=== PATIENT | male | born 1995 | race Caucasian/White ===

== ENCOUNTER 2016-10-15 10:50 | Emergency (ER) | payer SELFPAY ==
[2016-10-15 10:54] VITALS: TEMP 97.7; O2SAT 100
[2016-10-15] MEDS ORDERED: Lidocaine 2% Inj (20ml) INFIL ONE (11:16)
[2016-10-15] MEDS ORDERED: Tmp-Smz 800 mg-160 mg DS Tab PO STA (11:17)
[2016-10-15] MEDS ORDERED: Lidocaine 2% Inj (20ml) ONE (11:18)
--- NOTE | 2016-10-15 11:20 | C.PDOC ---
History Of Present Illness 21 yr old male presents to the ER for evaluation of left buttock painful mass for the past 3-4 days. Patient admits to similar symptoms in the past. Denies trauma, injury, fever, chills, abdominal pain, diarrhea, constipation, wound discharge, back pain, weakness or numbness. Time Seen by Provider: 10/15/16 11:12 Chief Complaint (Nursing): Abnormal Skin Integrity History Per: Patient History/Exam Limitations: no limitations Onset/Duration Of Symptoms: Days (3-4) Current Symptoms Are (Timing): Still Present Past Medical History Reviewed: Historical Data, Nursing Documentation, Vital Signs Vital Signs: Last Vital Signs Temp 97.7 F 10/15/16 10:53 Pulse 64 10/15/16 10:53 Resp 20 10/15/16 10:53 BP 115/65 10/15/16 10:53 Pulse Ox 100 10/15/16 11:24 - [facility] Procedures OTHER SKIN & SUBQ I D (07/04/14) Family History: States: No Known Family Hx - Social History Hx Tobacco Use: No Hx Alcohol Use: No Hx Substance Use: No - Immunization History Hx Tetanus Toxoid Vaccination: No Hx Influenza Vaccination: No Hx Pneumococcal Vaccination: No Review Of Systems Except As Marked, All Systems Reviewed And Found Negative. Constitutional: Negative for: Fever, Chills Gastrointestinal: Positive for: Other ((+) Painful mass on the left buttock. No drainage. ). Negative for: Abdominal Pain, Diarrhea, Constipation Musculoskeletal: Negative for: Back Pain Neurological: Negative for: Weakness, Numbness Physical Exam - Physical Exam Appears: Well, Non-toxic, No Acute Distress Skin: Warm, Dry, No Rash, Other (Right glutteus superior/lateral quandrant:4cm diameter tender mass, + fluctuance. No proximal streaking. ) Gastrointestinal/Abdominal: Soft, No Tenderness, No Guarding, No Rebound Back: No CVA Tenderness Extremity: Normal ROM, No Pedal Edema, No Swelling Neurological/Psych: Oriented x3, Normal Speech, Normal Motor, Normal Sensation, Normal Reflexes ED Course And Treatment O2 Sat by Pulse Oximetry: 100 Progress Note: On re-eavluation, pt is afebrile, hemodynamicaly stable. Non- toxic.Ambulatory in ED with stable gait. Abd: benign. back: (-) CVA tenderness. Skin: abscess over Right gluteus s/p I&D. Pt advised on wound care. ref. to F/u with ED in 2 days for wound check. ref. to F/u with surgery in 2-3 days as well. return to Ed if any worsening or new changes. - Incision & Drainage Of Abscess Anesthesia: Lidocaine 2% Prep Used: Betadine Procedure: Incised W/Scalpel Blade#: (11), Drained Pus (5ml), Irrigated Cavity W /Saline, Probed To Break Up Loculations, Packed W/Gauze Medical Decision Making Medical Decision Making: PLAN: * Bactrim PO Disposition Counseled Patient/Family Regarding: Diagnosis, Need For Followup, Rx Given - Disposition Referrals: [facility] [Outside] Jackie Matos MD [Staff Provider] - Disposition: HOME/ ROUTINE Disposition Time: 11:40 Condition: STABLE Additional Instructions: Take medication as prescribed Light duty return to ED in 2 days for wound check and packing removal/changes Follow up with Surgery in 2-3 days for re-evaluation as well. 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 - Scribe Statement The provider has reviewed the documentation as recorded by the Scribe Jennifer Tijerina All medical record entries made by the Scribe were at my direction and personally dictated by me. I have reviewed the chart and agree that the record accurately reflects my personal performance of the history, physical exam, medical decision making, and the department course for this patient. I have also personally directed, reviewed, and agree with the discharge instructions and disposition.
[2016-10-15] MEDS ORDERED: Tmp-Smz 800 mg-160 mg DS Tab ONE (11:29)
[2016-10-15 12:21] VITALS: BP 125/65; PULSE 69; RESP 18
== END 2016-10-15 12:20 | disposition home or self-care (01) ==
LOC: C.ER 10:50
DX: L02.31 Cutaneous abscess of buttock (principal)

== ENCOUNTER 2016-10-17 23:15 | Emergency (ER) | payer SELFPAY ==
[2016-10-17 23:27] VITALS: BP 111/70; PULSE 65; RESP 20; TEMP 97.7; O2SAT 100
--- NOTE | 2016-10-18 00:31 | C.PDOC ---
History Of Present Illness 21 year old male presents to the ED to check of a wound on the left buttock with no current pain. Patient was seen two days ago for an I&D of a buttock abscess, and is taking prescribed antibiotics. He denies any fever, or physical complaints at this time. Time Seen by Provider: 10/17/16 23:41 Chief Complaint (Nursing): Abnormal Skin Integrity History Per: Patient History/Exam Limitations: no limitations Quality Of Symptoms: denies: Painful, Itching, Swollen, Draining Recent travel outside of the [place]: No Additional History Per: Prior Records Past Medical History Reviewed: Historical Data, Nursing Documentation, Vital Signs Vital Signs: Last Vital Signs Temp 97.7 F 10/17/16 23:22 Pulse 65 10/17/16 23:22 Resp 20 10/18/16 00:44 BP 111/70 10/17/16 23:22 Pulse Ox 100 10/18/16 05:01 - [facility] Procedures OTHER SKIN & SUBQ I D (07/04/14) Family History: States: Unknown Family Hx - Social History Hx Tobacco Use: No Hx Alcohol Use: No Hx Substance Use: No - Immunization History Hx Tetanus Toxoid Vaccination: No Hx Influenza Vaccination: No Hx Pneumococcal Vaccination: No Review Of Systems Constitutional: Negative for: Fever, Chills Gastrointestinal: Negative for: Abdominal Pain Genitourinary: Positive for: Other (buttock wound) Physical Exam - Physical Exam Appears: Non-toxic, No Acute Distress Skin: Warm, Dry Head: Atraumatic Oral Mucosa: Moist Neck: Supple Respiratory: No Rales, No Rhonchi Gastrointestinal/Abdominal: Soft, No Tenderness Extremity: Normal ROM, No Tenderness Neurological/Psych: Oriented x3 Additional Physical Exam Comments: Packed abscess to left glutel area with a localized induration with no active draining and no fluctuance. ED Course And Treatment O2 Sat by Pulse Oximetry: 100 (room air ) Progress Note: Packing was removed from left buttock, wound was irrigated. There was no purulent discharge and wound was dressed. Patient was advised to continue with prescribed medications. Disposition Counseled Patient/Family Regarding: Diagnosis, Need For Followup - Disposition Disposition: HOME/ ROUTINE Disposition Time: 00:28 Condition: STABLE Additional Instructions: PLEASE FOLLOW UP WITH PMD CONTINUE MEDS PRESCRIBED RETURN TO ER IF WORSE Instructions: Abscess (ED) - Clinical Impression Clinical Impression: Wound check, abscess - Scribe Statement The provider has reviewed the documentation as recorded by the Scribe Ngozi Amador All medical record entries made by the Donisibe were at my direction and personally dictated by me. I have reviewed the chart and agree that the record accurately reflects my personal performance of the history, physical exam, medical decision making, and the department course for this patient. I have also personally directed, reviewed, and agree with the discharge instructions and disposition.
== END 2016-10-18 00:44 | disposition home or self-care (01) ==
LOC: C.ER 23:15
DX: Z48.00 Encounter for change or removal of nonsurgical wound dressing (principal)

== ENCOUNTER 2017-10-25 10:20 | Emergency (ER) | payer OTHER ==
[2017-10-25 10:40] VITALS: BP 116/71; PULSE 78; RESP 18; TEMP 97.4; O2SAT 99
[2017-10-25] MEDS ORDERED: Lidocaine 2% w Epi 1:100,000 Inj IJ STA (10:54)
--- NOTE | 2017-10-25 10:58 | C.PDOC ---
History Of Present Illness Patient is a 22 y/o male who presents to the ED with a complaint of worsening left buttock swelling and pain for the last 1 month. Patient reports possible abscess for the last 2-3 years; denies any prior I&D. Patient denies squeezing area but notes "it looks ready to drain". Denies fever. No other physical complaint. worsening L BUTTOCK SWELLING, PAIN X 1 MO, POSSIBLE ABSCESS X 2-3 YEARS. NO PRIOR I&D. PT DENIES SQUEEZING AREA "BUT IT LOOKS READY TO DRAIN". NO FEVER. EXAM NAD NONTOXIC SKIN +ABSCESS W CELLULITIS L UPPER BUTTOCK, NO PERIANAL INVOLVE REMAINDER NEG Time Seen by Provider: 10/25/17 10:50 Chief Complaint (Nursing): Abnormal Skin Integrity History Per: Patient History/Exam Limitations: no limitations Onset/Duration Of Symptoms: Days (1 monh) Current Symptoms Are (Timing): Still Present Location Of Injury: Left: Buttock (possible abscess) Quality Of Symptoms: Painful, Swollen Recent travel outside of the [place]: No Past Medical History Reviewed: Historical Data, Nursing Documentation, Vital Signs Vital Signs: Last Vital Signs Temp 97.4 F L 10/25/17 10:37 Pulse 78 10/25/17 10:37 Resp 18 10/25/17 10:37 BP 116/71 10/25/17 10:37 Pulse Ox 99 10/25/17 11:21 - Medical History PMH: No Chronic Diseases Surgical History: No Surg Hx - [facility] Procedures OTHER SKIN & SUBQ I D (07/04/14) Family History: States: No Known Family Hx - Social History Hx Tobacco Use: No Hx Alcohol Use: No Hx Substance Use: No - Immunization History Hx Tetanus Toxoid Vaccination: No Hx Influenza Vaccination: No Hx Pneumococcal Vaccination: No Review Of Systems Constitutional: Negative for: Fever Musculoskeletal: Positive for: Other (left buttock pain and swelling) Physical Exam - Physical Exam Appears: Non-toxic, No Acute Distress Skin: Normal Color, Warm, Dry, Other (cellulitis of left upper buttock, no perianal involvement ) Oral Mucosa: Moist Extremity: Normal ROM, No Deformity Neurological/Psych: Oriented x3, Normal Speech, Normal Cognition Gait: Steady ED Course And Treatment O2 Sat by Pulse Oximetry: 99 Progress Note: Tylenol, keflex, motrin administered. I&D procedure administered. - Incision & Drainage Of Abscess Anesthesia: Lidocaine 2%, With Epi Prep Used: Betadine Procedure: Incised W/Scalpel Blade#: (11), Drained Pus, Probed To Break Up Loculations, Packed W/Gauze Disposition Counseled Patient/Family Regarding: Diagnosis, Need For Followup, Rx Given - Disposition Referrals: [facility] [Provider Group] [facility] [Outside] [facility] [Outside] Disposition: HOME/ ROUTINE Disposition Time: 11:39 Condition: IMPROVED Additional Instructions: return 2 days for packing change, wound reevaluation. MOTRIN AND/OR TYLENOL DIRECTED FOR PAIN. COMPLETE ANTIBIOTICS PRESCRIBED. Prescriptions: Cephalexin [cephalexin] 500 mg PO BID #14 cap Instructions: Abscess Incision and Drainage (DC), Cellulitis (Skin Infection), Adult (DC) Forms: [employer] (Polish), Work Excuse - Clinical Impression Clinical Impression: Cellulitis, Abscess of buttock, left - Scribe Statement The provider has reviewed the documentation as recorded by the Scribnaz Cuellar All medical record entries made by the Donisibnaz were at my direction and personally dictated by me. I have reviewed the chart and agree that the record accurately reflects my personal performance of the history, physical exam, medical decision making, and the department course for this patient. I have also personally directed, reviewed, and agree with the discharge instructions and disposition.
== END 2017-10-25 11:50 | disposition home or self-care (01) ==
LOC: C.ER 10:20
DX: L03.317 Cellulitis of buttock (principal); L02.31 Cutaneous abscess of buttock

== ENCOUNTER 2017-10-27 07:52 | Emergency (ER) | payer SELFPAY ==
[2017-10-27 08:00] VITALS: BMI 21.9
[2017-10-27 08:02] VITALS: BP 120/74; PULSE 64; RESP 18; TEMP 98; O2SAT 100
--- NOTE | 2017-10-27 08:45 | C.PDOC ---
History Of Present Illness 22 year old male presents to the ED for left buttock packing change re-eval s/p I&D 10/25. Patient states symptoms are improved compared to prior and states he has been compliant with antibiotics. Patient denies new symptoms since prior ED evaluation. L BUTTOCK PACKING CHANGE REEVAL S/P I&D 10/25. P/S SX IMPROVED COMPARED TO PRIOR , COMPLIANT W ABX. NO NEW SX SINCE PRIOR ER EVAL. EXAM NAD SKIN PACKING IN PLACE; NO LOCAL ERYTHEMA, NONTEND NO FOCAL FLUCTUANCE PROC PACKING REMOVED WO DIFFICULTY. SCANT RESIDUAL PURULENT DC, IMPROVED COMPARED TO INITIAL. WOUND REPACKED, DRESSING APPLIED. PT TOLERATED WELL Time Seen by Provider: 10/27/17 08:13 Chief Complaint (Nursing): Wound Check History Per: Patient History/Exam Limitations: no limitations Onset/Duration Of Symptoms: Days Ago Current Symptoms Are (Timing): Better Additional History Per: Patient Past Medical History Reviewed: Historical Data, Nursing Documentation, Vital Signs Vital Signs: Last Vital Signs Temp 98.0 F 10/27/17 08:00 Pulse 64 10/27/17 08:00 Resp 18 10/27/17 08:55 BP 120/74 10/27/17 08:00 Pulse Ox 100 10/29/17 13:53 - Medical History PMH: No Chronic Diseases Surgical History: No Surg Hx - [facility] Procedures OTHER SKIN & SUBQ I D (07/04/14) Family History: States: Unknown Family Hx - Social History Hx Tobacco Use: No Hx Alcohol Use: No Hx Substance Use: No - Immunization History Hx Tetanus Toxoid Vaccination: No Hx Influenza Vaccination: No Hx Pneumococcal Vaccination: No Review Of Systems Skin: Positive for: Other (left buttock packing change and re-evaluation ) Physical Exam - Physical Exam Appears: Non-toxic, No Acute Distress Skin: Other (left buttock packing in place. no local erythema, nontender, no focal fluctuance ) Neck: Supple Extremity: Normal ROM Neurological/Psych: Oriented x3, Normal Speech, Normal Cognition ED Course And Treatment O2 Sat by Pulse Oximetry: 100 (on RA) Pulse Ox Interpretation: Normal Medical Decision Making Medical Decision Making: PROC PACKING REMOVED WO DIFFICULTY. SCANT RESIDUAL PURULENT DC, IMPROVED COMPARED TO INITIAL. WOUND REPACKED, DRESSING APPLIED. PT TOLERATED WELL Disposition Counseled Patient/Family Regarding: Diagnosis, Need For Followup - Disposition Referrals: [facility] [Provider Group] Disposition: HOME/ ROUTINE Disposition Time: 08:46 Condition: IMPROVED Additional Instructions: RETURN 2 DAYS FOR WOUND REEVALUATION, POSSIBLE PACKING CHANGE. Instructions: Wound Incision and Drainage (DC) Forms: [employer] (Mosotho) - Clinical Impression Clinical Impression: Wound check, abscess - Scribe Statement The provider has reviewed the documentation as recorded by the Scribe (Gayathri Henry) Provider Attestation: All medical record entries made by the Scribe were at my direction and personally dictated by me. I have reviewed the chart and agree that the record accurately reflects my personal performance of the history, physical exam, medical decision making, and the department course for this patient. I have also personally directed, reviewed, and agree with the discharge instructions and disposition.
== END 2017-10-27 08:55 | disposition home or self-care (01) ==
LOC: C.ER 07:52
DX: Z48.89 Encounter for other specified surgical aftercare (principal)

== ENCOUNTER 2017-10-29 09:50 | Emergency (ER) | payer SELFPAY ==
[2017-10-29 09:50] VITALS: BMI 21.9
[2017-10-29 09:55] VITALS: BP 118/75; PULSE 73; RESP 18; TEMP 98.7; O2SAT 99
--- NOTE | 2017-10-29 10:22 | C.PDOC ---
History Of Present Illness 22 year old male presents to the ED for wound check of left buttock. He is s/p I&D on 10/25/17, was seen here again on 10/27/17 and had packing removed and new packing placed. Patient states he feels the area is improving, is less painful. Patient denies fever or drainage. Time Seen by Provider: 10/29/17 09:55 Chief Complaint (Nursing): Wound Check History Per: Patient History/Exam Limitations: no limitations Onset/Duration Of Symptoms: Days Ago Current Symptoms Are (Timing): Better Severity: Mild Past Medical History Reviewed: Historical Data, Nursing Documentation, Vital Signs Vital Signs: Last Vital Signs Temp 98.7 F 10/29/17 09:54 Pulse 73 10/29/17 09:54 Resp 18 10/29/17 09:54 BP 118/75 10/29/17 09:54 Pulse Ox 99 10/29/17 11:27 - Medical History PMH: No Chronic Diseases Other Surgeries: Bilateral foot surgery - [facility] Procedures OTHER SKIN & SUBQ I D (07/04/14) Family History: States: No Known Family Hx - Social History Hx Tobacco Use: No Hx Alcohol Use: No Hx Substance Use: No - Immunization History Hx Tetanus Toxoid Vaccination: No Hx Influenza Vaccination: No Hx Pneumococcal Vaccination: No Review Of Systems Constitutional: Negative for: Fever, Chills Gastrointestinal: Negative for: Nausea, Vomiting, Abdominal Pain Skin: Positive for: Lesions (healing abscess left buttock) Physical Exam - Physical Exam Appears: Well, Non-toxic, No Acute Distress Skin: Warm, Dry, Other (Left gluteal area: 2 cm area of mild induration, no fluctuance, unable to express any purulent discharge) Eye(s): bilateral: Normal Inspection Oral Mucosa: Moist Neck: Supple Cardiovascular: Rhythm Regular Respiratory: Normal Breath Sounds, No Rales, No Rhonchi, No Wheezing Neurological/Psych: Oriented x3 ED Course And Treatment O2 Sat by Pulse Oximetry: 99 (RA) Pulse Ox Interpretation: Normal Progress Note: I removed wound packing, patient tolerated well. No purulent drainage expressed. Wound cleaned by nurse and covered by clean gauze. Patient instructed to follow up with PMD/clinic in 1-2 days. He understands he should return to ED if symptoms worsen. Disposition Counseled Patient/Family Regarding: Diagnosis, Need For Followup - Disposition Referrals: [facility] [Outside] Disposition: HOME/ ROUTINE Disposition Time: 10:20 Condition: STABLE Additional Instructions: FOLLOW UP WITH YOUR DOCTOR/CLINIC IN 1-2 DAYS RETURN TO ER IF SYMPTOMS WORSEN Instructions: Wound Care (DC) Forms: [employer] (New Zealander) Print Language: SAMI - POA Present On Arrival: None - Clinical Impression Clinical Impression: Visit for wound check - Scribe Statement The provider has reviewed the documentation as recorded by the Carlo Bernal Provider Attestation: All medical record entries made by the Carlo were at my direction and personally dictated by me. I have reviewed the chart and agree that the record accurately reflects my personal performance of the history, physical exam, medical decision making, and the department course for this patient. I have also personally directed, reviewed, and agree with the discharge instructions and disposition.
== END 2017-10-29 10:32 | disposition home or self-care (01) ==
LOC: C.ER 09:50
DX: Z48.00 Encounter for change or removal of nonsurgical wound dressing (principal)

== ENCOUNTER 2018-09-08 09:40 | Emergency (ER) | payer OTHER ==
[2018-09-08 09:40] VITALS: BMI 21.9
[2018-09-08 09:48] VITALS: BP 108/60; PULSE 69; RESP 20; TEMP 97.9; O2SAT 100
--- NOTE | 2018-09-08 10:24 | C.PDOC ---
History Of Present Illness 23 y/o male presents to the ED for evaluation of a rash to the chest, present for 1 month. Patient has not tried any [id number] medication or ointment. He presents to day accompanied by his mother, who was concerned patient may have cancer. Otherwise patient denies any chest pain, SOB, throat/lip swelling, fevers, coughing, or other associated complaint. He denies having any PMHx other than 1 abscess in the past. Time Seen by Provider: 09/08/18 10:08 Chief Complaint (Nursing): Abnormal Skin Integrity History Per: Patient History/Exam Limitations: no limitations Onset/Duration Of Symptoms: Days Current Symptoms Are (Timing): Still Present Location Of Injury: Anterior: Chest Past Medical History Reviewed: Historical Data, Nursing Documentation, Vital Signs Vital Signs: Last Vital Signs Temp 97.9 F 09/08/18 09:47 Pulse 69 09/08/18 09:47 Resp 20 09/08/18 09:47 BP 108/60 09/08/18 09:47 Pulse Ox 100 09/08/18 09:47 - Medical History PMH: No Chronic Diseases - [facility] Procedures OTHER SKIN & SUBQ I D (07/04/14) Family History: States: Unknown Family Hx - Social History Hx Tobacco Use: No Hx Alcohol Use: No Hx Substance Use: No - Immunization History Hx Tetanus Toxoid Vaccination: No Hx Influenza Vaccination: No Hx Pneumococcal Vaccination: No Review Of Systems Except As Marked, All Systems Reviewed And Found Negative. Constitutional: Negative for: Fever, Chills Cardiovascular: Negative for: Chest Pain Respiratory: Negative for: Shortness of Breath, Wheezing Gastrointestinal: Negative for: Nausea, Vomiting Skin: Positive for: Rash (to chest) Neurological: Negative for: Weakness, Dizziness Physical Exam - Physical Exam Appears: Well, Non-toxic, No Acute Distress Skin: Warm, Rash (Right mid-sternum with raised circular rash, 2 x 2 cm, with no erythema, no vesicles) Head: Atraumatic, Normacephalic Eye(s): bilateral: Normal Inspection Oral Mucosa: Moist Cardiovascular: Rhythm Regular, No Murmur Respiratory: Normal Breath Sounds, No Accessory Muscle Use Extremity: Bilateral: Atraumatic, Normal ROM Neurological/Psych: Oriented x3, Normal Speech Gait: Steady ED Course And Treatment O2 Sat by Pulse Oximetry: 100 (RA) Pulse Ox Interpretation: Normal Medical Decision Making Medical Decision Making: Impression: Rash Plan: Patient will be discharged home with rx for hydrocortisone cream. Advised of the importance of follow up with dermatology, list of local dermatologists provided. Disposition - Disposition Disposition: HOME/ ROUTINE Disposition Time: 10:21 Condition: GOOD Prescriptions: Hydrocortisone 1% Cream [Cortizone 1% Cream] 30 gm EXT BID #1 tube Instructions: Skin Rash (DC) Forms: [employer] (Frisian) - Clinical Impression Clinical Impression: Skin rash - Scribe Statement The provider has reviewed the documentation as recorded by the Carlo Bernal Provider Attestation: All medical record entries made by the Carlo were at my direction and personally dictated by me. I have reviewed the chart and agree that the record accurately reflects my personal performance of the history, physical exam, medical decision making, and the department course for this patient. I have also personally directed, reviewed, and agree with the discharge instructions and disposition.
== END 2018-09-08 10:30 | disposition home or self-care (01) ==
LOC: C.ER 09:40
DX: R21 Rash and other nonspecific skin eruption (principal)